=== PATIENT | male | born 1970 | race Asian ===

== ENCOUNTER 2022-10-13 11:15 | Emergency (ER) | payer OTHER ==
[~2022-10-13] VITALS: Ht 167.6 cm; Wt 63.5 kg
[2022-10-13 11:23] VITALS: BP 157/108
[2022-10-13] MEDS ORDERED: METF-440 PO (11:27)
[2022-10-13] MEDS ORDERED: CAND32TA20 PO (11:27)
--- NOTE | 2022-10-13 11:30 | NUR ---
Patient discharged to home in stable condition. Written and verbal after care instructions given. Patient verbalizes understanding of instruction.
== END 2022-10-13 11:39 | disposition home or self-care (01) ==
LOC: ER 11:18
DX: Z76.0 Encounter for issue of repeat prescription (principal); I10 Essential (primary) hypertension; E11.9 Type 2 diabetes mellitus without complications; Z79.899 Other long term (current) drug therapy